=== PATIENT | male | born 1990 | race African-American/Black ===

== ENCOUNTER 2016-06-16 19:30 | Emergency (ER) | payer OTHER ==
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
[~2016-06-16 19:30] MED LIST: BACLOFEN10 MG PO; BACTRIM DS TABL1 TA1; DULCOLAX10 MG/SUPP RC; GRALISE300 MG PO; HEALTHYLAX17 GM; JANTOVEN5 MG PO; LIDOCAINE 3.5% OP; MORPHINE SULFAT15 MG PO; NO MEDICATIONS; OXECTA5 MG PO; STOOL SOFTENER250 MG PO; ZOFRAN ODT4 MG PO
== END 2016-06-16 21:07 | disposition home or self-care (01) ==
LOC: SED 19:30
DX: S16.1XXA Strain of muscle, fascia and tendon at neck level, initial encounter (principal); V43.62XA Car passenger injured in collision with other type car in traffic accident, initial encounter; Y92.410 Unspecified street and highway as the place of occurrence of the external cause
CPT/HCPCS: 72040; 96372; 99283; J1885